=== PATIENT | female | born 1975 | race Asian ===

== ENCOUNTER 2016-09-11 10:42 | Emergency (ER) | payer OTHER | END 2016-09-11 13:02 | disposition home or self-care (01) | DX: S61.211A Laceration without foreign body of left index finger without damage to nail, initial encounter (principal); W26.0XXA Contact with knife, initial encounter; Y93.G1 Activity, food preparation and clean up; Y92.009 Unspecified place in unspecified non-institutional (private) residence as the place of occurrence of the external cause; Y99.8 Other external cause status ==